=== PATIENT | male | born 1965 | race African-American/Black ===

== ENCOUNTER 2016-09-19 12:26 | Emergency (ER) | payer BC ==
[~2016-09-19] VITALS: Ht 170.2 cm; Wt 93.0 kg
[~2016-09-19 12:26] MED LIST: CYCL5TAB PO; LAMI100T3 PO; LISI-334 PO; LOPI1TAB2 PO
[2016-09-19 12:30] VITALS: BP 129/66
--- NOTE | 2016-09-19 13:10 | PHYS DOC ---
Past Medical History Past Medical History: Hypertension, Other Additional Past Medical Histor: HIV Past Surgical History: Other Additional Past Surgical Histo: L)leg fx repair. Alcohol Use: None Drug Use: None Adult General Chief Complaint Chief Complaint: Congestion HPI HPI Patient is a 51 year old male presents to the emergency department stating that he has had a cough and congestion for the last 4 days. He denies any fever although has had some chills. He has generalized body aches and discomfort. His been taken some Tylenol cold and flu. He states that he does have some shortness of air difficulty breathing especially when he tries to lay down. He denies any history of congestive heart failure. He does state he does have bilateral lower leg swelling. Patient does have a history of high blood pressure is been taking his medications as prescribed. Patient denies any history of smoking. Review of Systems Review of Systems Constitutional: Denies fever or chills [] Eyes: Denies change in visual acuity, redness, or eye pain [] HENT: Denies nasal congestion or sore throat [] Respiratory: cough and shortness of breath [] Cardiovascular: No additional information not addressed in HPI [] Musculoskeletal: Denies back pain or joint pain [] Integument: Denies rash or skin lesions [] Neurologic: Denies headache, focal weakness or sensory changes [] Current Medications Current Medications Current Medications Medications (Trade) Dose Ordered Sig/Stephen Start Time Stop Time Status Last Admin Dose Admin Albuterol/ Ipratropium (Duoneb) 3 ml 1X ONCE 09/19/16 13:15 09/19/16 13:16 DC 09/19/16 13:15 3 ML Allergies Allergies Allergies Coded Allergies Type Severity Reaction Last Updated Verified No Known Drug Allergies 12/07/13 No Physical Exam Physical Exam Constitutional: Well developed, well nourished, no acute distress, non-toxic appearance. [] HENT: Normocephalic, atraumatic, bilateral external ears normal, oropharynx moist, no oral exudates, nose normal. Bilateral tympanic membranes appear to be normal. Throat with no erythematous or exudate noted. Eyes: PERRLA, EOMI, conjunctiva normal, no discharge. [] Neck: Normal range of motion, no tenderness, supple, no stridor. [] Cardiovascular:Heart rate regular rhythm, no murmur [] Lungs & Thorax: Bilateral breath sounds clear to auscultation. Patient has a dry cough noted. Skin: Warm, dry, no erythema, no rash. [] Back: No tenderness Extremities: No tenderness, no cyanosis, no clubbing, ROM intact, no edema. [] Neurologic: Alert and oriented X 3, normal motor function, normal sensory function, no focal deficits noted. [] Psychologic: Affect normal, judgement normal, mood normal. [] Current Patient Data Vital Signs Vital Signs Date Time Temp Pulse Resp B/P Pulse Ox O2 Delivery O2 Flow Rate FiO2 09/19/16 13:15 Room Air 09/19/16 12:30 98.4 100 20 98 98.4 EKG EKG [] Radiology/Procedures Radiology/Procedures [][facility] [address] [place] [address] IMAGING REPORT Signed PATIENT: CLARENCE NARVAEZ ACCOUNT: [id number] : 1965 LOCATION: ER AGE: 51 SEX: M EXAM STATUS: REG ER ORD. PHYSICIAN: BENJAMIN HILLIARD NP REASON: cough congestion PROCEDURE: CHEST PA & LATERAL Chest, 2 views, 09/19/2016: History: Cough and congestion The heart size and pulmonary vascularity are normal. No pulmonary infiltrates are seen. There is no evidence of pleural fluid. Moderate spurring is present in the spine. IMPRESSION: No acute cardiopulmonary abnormality is detected. DICTATED and SIGNED BY: JOSESITO DELEON MD DATE: 09/19/16 1309 CC: BENJAMIN HILLIARD CHART CALCULATOR; NO PCP ~ Course & Med Decision Making Course & Med Decision Making Pertinent Labs and Imaging studies reviewed. (See chart for details) Patient's x-ray was negative. He was provided with a DuoNeb treatment here in the emergency department. He'll be discharged home with bronchitis information. He'll be provided with some steroids to help open up the airways. He'll be provided with a pro-air. Patient will also be placed on antibiotics Zithromax. Since symptoms to return back to emergency department as been provided. Patient agrees with discharge instructions treatment regimens and follow-up recommendations. [] Dragon Disclaimer Dragon Disclaimer This electronic medical record was generated, in whole or in part, using a voice recognition dictation system. Departure Departure Impression: Primary Impression: Bronchitis Disposition: 01 HOME, SELF-CARE Condition: STABLE Referrals: NO PCP (PCP) Patient Instructions: Acute Bronchitis, [id number] Additional Instructions: Activity as tolerated Medications as prescribed Drink plenty of fluids Followup with primary care provider in 3-5 days Return to emergency department as needed for signs and symptoms that become worse. Scripts Azithromycin (Zithromax)250 Mg [id number] Mg PO DAILY ANTI-BIOTIC #6 TAB Take 2 tablets today then 1 tablet daily until gone Prov:BENJAMIN HILLIARD NP 09/19/16 Prednisone 20 Mg [id number] Mg PO DAILY #10 TAB Prov:BENJAMIN HILLIARD NP 09/19/16 Albuterol Sulfate (Proair Hfa Inhaler)8.5 Gm [id number].[id number] Puff INH PRN Q6HRS PRN SHORTNESS OF BREATH #1 INHALER Prov:BENJAMIN HILLIARD NP 09/19/16 BENJAMIN HILLIARD NP Sep 19, 2016 13:09
[2016-09-19] MEDS ORDERED: IPRATRPIUM/ALBUTEROL 0.5/2.5MG 3 ML NEBU. NEB ONE (13:15)
[2016-09-19] MEDS ORDERED: PRED20TA PO (13:23)
[2016-09-19] MEDS ORDERED: AZIT250T PO (13:23)
[2016-09-19] MEDS ORDERED: PROAIR HFA8.5 GM INH (13:23)
== END 2016-09-19 13:34 | disposition home or self-care (01) ==
LOC: ER 12:26
DX: J40 Bronchitis, not specified as acute or chronic (principal); I10 Essential (primary) hypertension; Z21 Asymptomatic human immunodeficiency virus [HIV] infection status
CPT/HCPCS: 71020; 94250; 94640; 99284; J7620